=== PATIENT | female | born 1960 | race African-American/Black ===

== ENCOUNTER 2017-01-06 19:57 | Emergency (ER) | payer MEDICAID, OTHER ==
[~2017-01-06] VITALS: Ht 165.1 cm; Wt 64.0 kg
[~2017-01-06 19:57] MED LIST: ACET-2178 PO; DEPAKOTE PO; FAMO20TA96 PO; QUET300T2 PO
[2017-01-06] MEDS ORDERED: FAMOTIDINE 20MG/2ML VIAL IV STA (22:58)
[2017-01-06] MEDS ORDERED: SODIUM CHLORIDE 0.9% 1,000 ML IV ONE (22:58)
[2017-01-06] MEDS ORDERED: MORPHINE SULFATE 4 MG/ML CPJ (NOT FOR IM USE) IV STA (22:58)
[2017-01-06] MEDS ORDERED: ONDANSETRON HCL 4MG/2ML VIAL IV STA (22:58)
[2017-01-06 23:16] LABS: BASOPHILS % 0.5 % (0.0-2.0); EOSINOPHILS % 0.3 % (0.0-5.0); HEMATOCRIT. 43.3 % (36.0-48.0); HEMOGLOBIN. 14.9 g/dL (12.0-16.0); LYMPHOCYTES % 12.8 % (20.0-50.0); MEAN CORPUSCULAR VOLUME 95.7 fL (81.0-99.0); MEAN PLATELET VOLUME 9.7 fl (7.4-10.4); MONOCYTES % 4.5 % (2.0-8.0); NEUTROPHILS % 81.9 % (40.0-76.0); PLATELET 258 x1000/uL (130-400); RED BLOOD CELL COUNT 4.52 mill/uL (4.2-5.4); RED CELL DISTRIBUTION WIDTH 14.6 % (11.6-14.6)
[2017-01-06 23:27] LABS: D-DIMER 0.57 mg/L FEU (<0.50); PROTHROMBIN TIME 10.7 sec
[2017-01-07 00:28] LABS: CARBON DIOXIDE 36 mEq/L (21-32); CHLORIDE 102 mEq/L (98-107)
[2017-01-07 00:29] LABS: ETHANOL BLOOD < 10 mg/dL; TROPONIN I < 0.02 ng/mL (0.00-0.04)
[2017-01-07 00:56] LABS: CLARITY URINE CLOUDY (CLEAR); COLOR URINE YELLOW (YELLOW); GLUCOSE URINE NEGATIVE (NEGATIVE); KETONES URINE TRACE (NEGATIVE); LEUKOCYTE ESTERASE URINE 1+ (NEGATIVE); NITRITE URINE NEGATIVE (NEGATIVE); OCCULT BLOOD URINE NEGATIVE (NEGATIVE); PH URINE 7.5 (4.5-8.0); PROTEIN URINE 2+ (NEGATIVE); SPECIFIC GRAVITY URINE 1.025 (1.005-1.030)
[2017-01-07 01:16] LABS: *AMPHETAMINES SCREEN URINE NEGATIVE (NEGATIVE); *BARBITURATES SCREEN URINE NEGATIVE (NEGATIVE); *BENZODIAZEPINES SCREEN URINE NEGATIVE (NEGATIVE); *COCAINE SCREEN URINE NEGATIVE (NEGATIVE); CANNABINOID URINE SCREEN PRESUMTIVE POSITIVE (NEGATIVE); METHADONE URINE SCREEN NEGATIVE (NEGATIVE); OPIATES URINE SCREEN PRESUMTIVE POSITIVE (NEGATIVE); PHENCYCLIDINE URINE SCREEN NEGATIVE (NEGATIVE)
[2017-01-07] MEDS ORDERED: CEFTRIAXONE 1 G PREMIX 50 ML IV NR (03:16)
[2017-01-07 03:43] VITALS: BP 144/84
== END 2017-01-07 04:26 | disposition home or self-care (01) ==
LOC: ER 19:57 → CANBEDREQ 01-07 06:15
DX: D25.9 Leiomyoma of uterus, unspecified (principal); N39.0 Urinary tract infection, site not specified; Z88.0 Allergy status to penicillin; F20.9 Schizophrenia, unspecified; F14.10 Cocaine abuse, uncomplicated; F12.10 Cannabis abuse, uncomplicated; F11.10 Opioid abuse, uncomplicated
CPT/HCPCS: 36415; 71010; 74176; 80053; 80305; 81001; 83605; 83690; 83880; 84484; 85025; 85379; 85610; 93005; 96361; 96365; 96375; 99285; G0482; J0696; J2270; J2405; J3490; J7030; Z7610